=== PATIENT | female | born 1965 | race American Indian/Alaskan Native ===

== ENCOUNTER 2016-05-25 09:22 | Outpatient (CLI) | payer BC ==
--- NOTE | 2016-05-25 10:02 | XRay Report ---
ROUTINE CHEST, TWO VIEWS: HISTORY: chest pain, cough. There is poor inspiration. The trachea, heart, mediastinal contour, lung childers and bony thorax are unremarkable. IMPRESSION: Unremarkable chest x-ray.
== END 2016-05-25 09:23 | disposition home or self-care (01) ==
LOC: XRAY 09:22
PROVIDERS: ATTEND Family Medicine Adult Medicine
DX: R05 Cough (principal)
CPT/HCPCS: 71020